=== PATIENT | female | born 1960 | race Asian ===

== ENCOUNTER 2018-06-12 08:42 | Emergency (ER) | payer MEDICARE, OTHER ==
[~2018-06-12] VITALS: Ht 160 cm; Wt 74.5 kg
[2018-06-12] MEDS ORDERED: AMLO-511 PO (08:48)
[2018-06-12] MEDS ORDERED: FAMO20 PO (08:48)
[2018-06-12] MEDS ORDERED: ATOR20TA86 PO (08:48)
[2018-06-12] MEDS ORDERED: LOSA1TAB40 PO (08:48)
[2018-06-12 09:19] LABS: BASOPHILS % (AUTO) 0.6 % (0.0-2.0); EOSINOPHILS % (AUTO) 2.4 % (1.0-6.0); HEMATOCRIT 38.6 % (36-46); HEMOGLOBIN 12.9 g/dL (12.0-16.0); LYMPHOCYTES # (AUTO) 2.1 K/uL (1.0-4.8); LYMPHOCYTES % (AUTO) 33.9 % (22.0-44.0); MEAN CORPUSCULAR HEMOGLOBIN 28.8 pg (26.0-34.0); MEAN CORPUSCULAR HGB CONC 33.4 G/dL (31.0-37.0); MEAN CORPUSCULAR VOLUME 86 fL (80-100); MONOCYTES # (AUTO) 0.4 K/uL (0.1-1.0); MONOCYTES % (AUTO) 7.1 % (2.0-9.0); NEUTROPHILS # (AUTO) 3.5 K/uL (1.8-7.7); PLATELET COUNT (AUTO) 206 K/uL (150-450); RED BLOOD CELL COUNT(AUTO) 4.48 MIL/uL (4.00-5.20); RED CELL DISTRIBUTION WIDTH 12.8 % (11.5-14.5)
[2018-06-12 09:38] LABS: CALCIUM, TOTAL 9.2 mg/dL (8.8-10.5); CREATININE 0.97 mg/dL (0.60-1.30); POTASSIUM 4.1 mmol/L (3.5-5.1)
[2018-06-12 09:42] LABS: ALBUMIN 4.1 g/dL (3.4-5.0); BILIRUBIN,TOTAL 0.5 mg/dL (0.1-1.0); INR 0.9 (0.9-1.1); PROTHROMBIN TIME 9.4 SEC (9.4-11.6); TOTAL PROTEIN, SERUM 7.4 g/dL (6.4-8.2)
[2018-06-12 09:46] LABS: APPEARANCE,URINE CLOUDY (CLEAR); BILIRUBIN,URINE NEGATIVE (NEGATIVE); GLUCOSE, URINE (UA) NEGATIVE (NEGATIVE); KETONES,URINE NEGATIVE (NEGATIVE); LEUKOCYTE ESTERASE ,URINE LARGE (NEGATIVE); NITRATE,URINE NEGATIVE (NEGATIVE); OCCULT BLOOD,URINE NEGATIVE (NEGATIVE); PROTEIN,URINE NEGATIVE (NEGATIVE); UROBILINOGEN,URINE 0.2 mg/dL (<=1.0)
[2018-06-12 09:56] LABS: BACTERIA,URINE Many /HPF (None Seen); RBC,URINE 0-2 /HPF (0-2); SQUAMOUS EPITHELIAL CELL,UR Many /LPF (None Seen)
[2018-06-12] MEDS ORDERED: KETOROLAC TROMETHAMINE 30 MG/ML VIAL IVP ONE (10:30)
[2018-06-12] MEDS ORDERED: NITROFURANTOIN/NITROFURAN MAC 100 MG CAPSULE [MACROBID] PO ONE (10:30)
[2018-06-12 11:19] VITALS: BP 147/83
== END 2018-06-12 11:19 | disposition home or self-care (01) ==
LOC: EMS 08:43
DX: M94.0 Chondrocostal junction syndrome [Tietze] (principal); I10 Essential (primary) hypertension; K21.9 Gastro-esophageal reflux disease without esophagitis; E78.00 Pure hypercholesterolemia, unspecified
CPT/HCPCS: 36415; 71045; 80053; 81001; 83880; 84484; 85025; 85610; 85730; 87086; 93005; 96374; 99285; J1885

== ENCOUNTER 2024-01-05 05:02 | Emergency (ER) | payer MEDICARE, MEDICAID ==
[~2024-01-05] VITALS: Ht 160 cm; Wt 72.7 kg
[~2024-01-05 05:02] MED LIST: AMLO-257 PO; ATOR20TA PO; FAMO20 PO; LOSA1TAB40 PO
[2024-01-05 05:19] VITALS: TEMP 97.3
[2024-01-05] MEDS: CYCLOBENZAPRINE HCL 10 MG TABLET PO ONE (05:54)
[2024-01-05] MEDS: KETOROLAC TROMETHAMINE 30 MG/ML VIAL IM ONE (05:54)
[2024-01-05] MEDS: OxyCODONE HCL/ACETAMINOPHEN 5-325 MG TABLET PO ONE (07:44)
[2024-01-05] MEDS: LIDOCAINE 5% TRANSDERMAL PATCH TD ONE (07:44)
[2024-01-05 07:45] VITALS: BP 182/90; PULSE 86; RESP 16; O2SAT 99
[2024-01-05] MEDS ORDERED: METH-659 PO (08:01)
[2024-01-05] MEDS ORDERED: PERCT PO (08:01)
[2024-01-05] MEDS ORDERED: IBUP-1492 PO (08:01)
== END 2024-01-05 08:25 | disposition home or self-care (01) ==
LOC: EMS 05:03
DX: M75.101 Unspecified rotator cuff tear or rupture of right shoulder, not specified as traumatic (principal); M54.2 Cervicalgia; K21.9 Gastro-esophageal reflux disease without esophagitis; I10 Essential (primary) hypertension; E78.00 Pure hypercholesterolemia, unspecified; Z79.899 Other long term (current) drug therapy
CPT/HCPCS: 99284; 73030; 82962; 96372; J1885